=== PATIENT | female | born 1965 | race Two or more races ===

== ENCOUNTER 2020-01-31 15:22 | Emergency (ER) | payer OTHER ==
[~2020-01-31] VITALS: Ht 149.9 cm; Wt 64.4 kg
[2020-01-31 16:03] LABS: MEAN CORPUSCULAR HEMOGLOBIN 30.1 pg (27.0-34.8); MEAN CORPUSCULAR HGB CONC 34.7 g/dL (32.4-35.8); PLATELET COUNT 437 x10^3/uL (130-400); RED BLOOD COUNT 5.15 x10^6/uL (3.82-5.3); RED CELL DISTRIBUTION WIDTH 12.8 % (9.6-15.2)
[2020-01-31 16:10] LABS: ALBUMIN 3.5 g/dL (3.4-5.0); ANION GAP 9 mmol/L (5-15); CALCIUM 8.8 mg/dL (8.5-10.1); CHLORIDE 105 mmol/L (98-107)
[2020-01-31 16:16] LABS: ALANINE AMINOTRANSFERASE 40 U/L (12-78); ALKALINE PHOSPHATASE 78 U/L (45-117); BILIRUBIN,TOTAL 0.5 mg/dL (0.2-1.0); CREATININE 0.85 mg/dL (0.55-1.02); TOTAL PROTEIN 7.7 g/dL (6.4-8.2)
[2020-01-31 16:54] LABS: MD YES
[2020-01-31 16:58] LABS: BAND#(MANUAL) 1.62 x10^3/uL; BANDS%(MANUAL) 11 % (0-7); BASOS#(MANUAL) 0.15 x10^3/uL (0-0.1); BASOS% (MANUAL) 1 % (0-1); EOS#(MANUAL) 0.15 x10^3/uL (0.0-0.4); EOS% (MANUAL) 1 % (1-7); LYMPH#(MANUAL) 3.38 x10^3/uL (1-3.4); LYMPHS% (MANUAL) 23 % (22-44); MONOS#(MANUAL) 1.47 x10^3/uL (0.3-2.7); MONOS% (MANUAL) 10 % (2-9); SEG#(MANUAL) 7.94 x10^3/uL (1.8-6.8); SEGS% (MANUAL) 54 % (42-75)
[2020-01-31 17:00] LABS: <PLATELET ESTIMATE> INCREASED; <PLT MORPHOLOGY> NORMAL PLT MORPH; HYPOCHROMIA 1+
--- NOTE | 2020-01-31 18:38 | NUR ---
TARIFF CLERK: PT AMBULATORY TO ROOM FROM LOBBY
[2020-01-31 18:59] LABS: MICROSCOPIC INDICATED
--- NOTE | 2020-01-31 19:13 | NUR ---
TASK RN: REPORT OF PT FROM BERTA FAIRCHILD AND ASSUMING TEMPORARY CARE OF PT AT THIS TIME.
[2020-01-31] MEDS ORDERED: ONDANSETRON 2MG/ML, 2ML ONE ×2 (19:30→22:02)
[2020-01-31] MEDS ORDERED: MORPHINE SULFATE 4 MG/ML, 1ML ONE ×2 (19:30→21:50)
[2020-01-31] MEDS ORDERED: ONDANSETRON 2MG/ML, 2ML IVPush ONE (19:30)
--- NOTE | 2020-01-31 19:39 | NUR ---
TASK RN: PT MEDICATED PER MAR FOR PAIN AND NAUSEA.
[2020-01-31] MEDS: MORPHINE SULFATE 4 MG/ML, 1ML IVPush PRN ×2 (19:41→21:52)
--- NOTE | 2020-01-31 19:49 | NUR ---
PT RETURNED FROM US.
[2020-01-31] MEDS ORDERED: OMNIPAQUE 350 MG/ML, 100ML BOTTLE ONE (19:51)
--- NOTE | 2020-01-31 20:47 | NUR ---
PT REPORTS IMPROVEMENT IN L FLANK PAIN AFTER PAIN MEDS. VSS. RV'WD POC, SHE VERBALIZES UNDERSTANDING. CHART UP FOR RECHECK.
[2020-01-31] MEDS ORDERED: CEFTRIAXONE PMX 1GM/50ML 50 ML IV ONE (21:00)
[2020-01-31] MEDS ORDERED: CEFTRIAXONE PMX 1GM/50ML 50 ML ONE (21:30)
--- NOTE | 2020-01-31 21:45 | NUR ---
PT AMBULATED TO BR WITHOUT DIFFICULTY.
--- NOTE | 2020-01-31 21:50 | NUR ---
PT C/O INCREASED FLANK/BACK PAIN AGAIN 11/02. MEDICATED WITH SECOND DOSE MORPHINE PER PRN ORDERS. ABX INFUSING. PT UNDERSTANDS POC, STATES HER WILL COME TO PICK HER UP. FRIEND AT BS.
[2020-01-31] MEDS ORDERED: ONDANSETRON ODT 4 MG ONE (22:02)
--- NOTE | 2020-01-31 22:48 | NUR ---
PT STATES SHE FEELS MUCH BETTER NOW, FLANK PAIN/BACK PAIN RESOLVED. D/C INSTRUCTIONS, MEDS & F/U APPT RV'WD WITH PT, SHE VERBALIZES UNDERSTANDING. RX GIVEN X2. PT AMBULATED OUT OF ED WITH FRIEND WITHOUT DIFFICULTY.
[2020-01-31 22:51] VITALS: BP 118/20
== END 2020-01-31 22:49 | disposition home or self-care (01) ==
LOC: ED 20:33
DX: N10 Acute pyelonephritis (principal); R00.0 Tachycardia, unspecified; E11.9 Type 2 diabetes mellitus without complications
CPT/HCPCS: 36415; 74177; 80053; 81001; 84703; 85025; 87077; 87086; 87186; 96365; 96375; 96376; 99285; J0696; J2270; J2405; Q9967